=== PATIENT | female | born 2000 | race Hispanic/Latino ===

== ENCOUNTER 2022-01-28 22:59 | Inpatient (IN) | payer BC ==
[2022-01-29 00:16] LABS: Basophils # (Auto) 0.1 K/mm3 (0.0-0.1); Basophils % (Auto) 0.4 % (0.0-1.8); Eosinophils % (Auto) 0.1 % (0.0-4.3); Lymphocytes # (Auto) 2.7 K/mm3 (1.2-5.4); Lymphocytes % (Auto) 20.5 % (13.4-35.0); Mean Corpuscular HGB Conc 31 % (30-34); Mean Corpuscular Volume 86 fl (79-97); Monocytes # (Auto) 0.6 K/mm3 (0.0-0.8); Monocytes % (Auto) 4.4 % (0.0-7.3); Platelet Count 538 K/mm3 (140-440); Red Blood Count 5.22 M/mm3 (3.65-5.03); Red Cell Distribution Width 14.8 % (13.2-15.2)
[2022-01-29 00:27] LABS: Hematocrit 44.7 % (30.3-42.9); Hemoglobin 13.8 gm/dl (10.1-14.3)
[2022-01-29 00:29] LABS: Alanine Aminotransferase 12 units/L (7-56); Albumin 5.2 g/dL (3.9-5); BUN/Creatinine Ratio 15; Blood Urea Nitrogen 15 mg/dL (7-17); Calcium 9.4 mg/dL (8.4-10.2); Hemolysis Index 5
[2022-01-29 00:41] LABS: Mucus,Urine FEW /HPF; RBC,Urine < 1.0 /HPF (0.0-6.0); WBC,Urine < 1.0 /HPF (0.0-6.0)
[2022-01-29 00:44] LABS: Color,Urine Yellow (Yellow)
[2022-01-29] MEDS ORDERED: DEXTROSE 50% IN WATER (25GM) 50 ML SYRINGE IV PRN ×2 (01:07→17:45)
[2022-01-29] MEDS ORDERED: POTASSIUM CHLORIDE 10 MEQ 10 MEQ/100 ML BAG IV PRN (01:07)
[2022-01-29] MEDS ORDERED: SODIUM CHLORIDE 0.9% 1000 ML 1,000 ML IV ONE ×2 (01:07→01:08)
[2022-01-29] MEDS ORDERED: INSULIN REGULAR, HUMAN 100 UNITS/1 ML IV ONE (01:08)
[2022-01-29] MEDS ORDERED: ONDANSETRON 4 MG/2 ML INJ IV ONE (01:09)
--- NOTE | 2022-01-29 01:40 | Emergency Department Report ---
ED N/V/D HPI - General Chief complaint: Hyperglycemia Stated complaint: DIABETIC Time Seen by Provider: 01/29/22 01:06 Source: patient Mode of arrival: Ambulatory Limitations: No Limitations - History of Present Illness Initial comments: 21-year-old female with history of diabetes since age 3 with previous DKA presents to the hospital with nausea and vomiting since this morning. Patient has an insulin pump and believes it is functioning appropriately. Patient is visiting from [place] complaint: nausea, vomiting -: Gradual, days(s) (1) Description of Vomiting: food contents Associated Abdominal Pain: Yes Location: flank (right) Severity: mild Quality: stabbing Consistency: intermittent Improves with: none Worsens with: none Context: other (hyperglycemia) Associated Symptoms: nausea/vomiting. denies: chest pain, diaphoresis, fever/c hills, dysuria, shortness of breath - Related Data Allergies Allergy/AdvReac Type Severity Reaction Status Date / Time amoxicillin Allergy Unknown Verified 01/28/22 23:36 ED Review of Systems ROS: Stated complaint: DIABETIC Other details as noted in HPI Comment: All other systems reviewed and negative ED Past Medical Hx - Past Medical History Previous Medical History?: Yes Hx Diabetes: Yes (TYPE 1 DX AT AGE 3) - Surgical History Past Surgical History?: No - Social History Smoking Status: Never Smoker Substance Use Type: None ED Physical Exam - General Limitations: No Limitations - Other Other exam information: General: No acute distress Head: Atraumatic Eyes: normal appearance ENT: Dry mucous membrane Neck: Normal appearance, no midline tenderness Chest: Clear to auscultation bilaterally CV: Tachycardic regular rhythm Abdomen: Soft, normal bowel sounds, nontender, nondistended, no rebound or guarding Back: Normal inspection Extremity: Normal inspection, full range of motion Neuro: Alert O x 3, no facial asymmetry, speech clear, no gross motor sensory deficit Psych: Appropriate behavior Skin: No rash ED Course Vital Signs 01/28/22 23:35 Temperature 98.3 F Pulse Rate 121 H Respiratory 18 Rate Blood Pressure 124/61 O2 Sat by Pulse 98 Oximetry ED Medical Decision Making - Lab Data Result diagrams: 01/28/22 23:38 01/28/22 23:38 Lab Results 01/28/22 01/28/22 01/28/22 Range/Units 23:38 23:38 23:38 WBC 13.1 H (4.5-11.0) K/mm3 RBC 5.22 H (3.65-5.03) M/mm3 Hgb 13.8 (10.1-14.3) gm/dl Hct 44.7 H (30.3-42.9) % MCV 86 (79-97) fl MCH 26 L (28-32) pg MCHC 31 (30-34) % RDW 14.8 (13.2-15.2) % Plt Count 538 H (140-440) K/mm3 Lymph % (Auto) 20.5 (13.4-35.0) % [place] % (Auto) 4.4 (0.0-7.3) % Eos % (Auto) 0.1 (0.0-4.3) % Baso % (Auto) 0.4 (0.0-1.8) % Lymph # (Auto) 2.7 (1.2-5.4) K/mm3 [place] # (Auto) 0.6 (0.0-0.8) K/mm3 Eos # (Auto) 0.0 (0.0-0.4) K/mm3 Baso # (Auto) 0.1 (0.0-0.1) K/mm3 Seg Neutrophils % 74.6 H (40.0-70.0) % Seg Neutrophils # 9.8 H (1.8-7.7) K/mm3 Sodium 133 L (137-145) mmol/L Potassium 5.7 H (3.6-5.0) mmol/L Chloride 97.5 L (98-107) mmol/L Carbon Dioxide 6 L* (22-30) mmol/L Anion Gap 35 mmol/L BUN 15 (7-17) mg/dL Creatinine 1.0 (0.6-1.2) mg/dL Estimated GFR > 60 ml/min BUN/Creatinine Ratio 15 % Glucose 451 H (65-100) mg/dL Calcium 9.4 (8.4-10.2) mg/dL Total Bilirubin 0.30 (0.1-1.2) mg/dL AST 11 (5-40) units/L ALT 12 (7-56) units/L Alkaline Phosphatase 175 H (35-129) units/L Total Protein 8.4 H (6.3-8.2) g/dL Albumin 5.2 H (3.9-5) g/dL Albumin/Globulin Ratio 1.6 % Lipase 13 (13-60) units/L HCG, Qual Negative (Negative) Urine Color (Yellow) Urine Turbidity (Clear) Specific [place] (Man) (1.003-1.030) Ur Protein (Man) (Negative) mg/dL Ur Ketones (Man) (Negative) Ur Nitrite (Man) (Negative) Ur Reducing Substances Urine Bilirubin (Man) (Negative) Urine Ictotest Leukocyte Esterase (Man) (Negative) Urine WBC (Auto) (0.0-6.0) /HPF Urine RBC (Auto) (0.0-6.0) /HPF Urine RBC (Manual) (Negative) Urine Mucus /HPF 01/28/22 Range/Units Unknown WBC (4.5-11.0) K/mm3 RBC (3.65-5.03) M/mm3 Hgb (10.1-14.3) gm/dl Hct (30.3-42.9) % MCV (79-97) fl MCH (28-32) pg MCHC (30-34) % RDW (13.2-15.2) % Plt Count (140-440) K/mm3 Lymph % (Auto) (13.4-35.0) % [place] % (Auto) (0.0-7.3) % Eos % (Auto) (0.0-4.3) % Baso % (Auto) (0.0-1.8) % Lymph # (Auto) (1.2-5.4) K/mm3 [place] # (Auto) (0.0-0.8) K/mm3 Eos # (Auto) (0.0-0.4) K/mm3 Baso # (Auto) (0.0-0.1) K/mm3 Seg Neutrophils % (40.0-70.0) % Seg Neutrophils # (1.8-7.7) K/mm3 Sodium (137-145) mmol/L Potassium (3.6-5.0) mmol/L Chloride (98-107) mmol/L Carbon Dioxide (22-30) mmol/L Anion Gap mmol/L BUN (7-17) mg/dL Creatinine (0.6-1.2) mg/dL Estimated GFR ml/min BUN/Creatinine Ratio % Glucose (65-100) mg/dL Calcium (8.4-10.2) mg/dL Total Bilirubin (0.1-1.2) mg/dL AST (5-40) units/L ALT (7-56) units/L Alkaline Phosphatase (35-129) units/L Total Protein (6.3-8.2) g/dL Albumin (3.9-5) g/dL Albumin/Globulin Ratio % Lipase (13-60) units/L HCG, Qual (Negative) Urine Color Yellow (Yellow) Urine Turbidity Slightly cloudy (Clear) Specific [place] (Man) 1.030 (1.003-1.030) Ur Protein (Man) 1+ (Negative) mg/dL Ur Ketones (Man) 3+ (Negative) Ur Nitrite (Man) Negative (Negative) Ur Reducing Substances Not Reportable Urine Bilirubin (Man) Negative (Negative) Urine Ictotest Not Reportable Leukocyte Esterase (Man) Negative (Negative) Urine WBC (Auto) < 1.0 (0.0-6.0) /HPF Urine RBC (Auto) < 1.0 (0.0-6.0) /HPF Urine RBC (Manual) Negative (Negative) Urine Mucus Few /HPF - EKG Data -: EKG Interpreted by [facility] EKG shows normal: sinus rhythm, ST-T waves (no stemi) Rate: tachycardia - Medical Decision Making 21-year-old female with nausea, vomiting, hyperglycemia has labs consistent with DKA. IV fluids, IV bolus of insulin and insulin drip, and Zofran ordered. Patient denies needing pain medication at this time. Case walter with hospitalist for admission Critical Care Time: Yes Critical care time in (mins) excluding proc time.: 35 Critical care attestation.: If time is entered above; I have spent that time in minutes in the direct care of this critically ill patient, excluding procedure time. Critical Care Time: 35 minutes critical care time. Patient required initiation of IV insulin drip with titration and monitoring of labs and glucose levels. Patient will require ICU admission ED Disposition Clinical Impression: DKA (diabetic ketoacidosis), Nausea & vomiting Disposition: ADMITTED INPATIENT Is pt being admited?: Yes Condition: Stable Instructions: Diabetic Ketoacidosis (ED) Time of Disposition: 01:46 (Dr Subramanian)
[2022-01-29] MEDS: INSULIN REGULAR, HUMAN 100 UNITS in SODIUM CHLORIDE 0.9% 99 ML IV SCH ×2 (01:44→02:55)
[2022-01-29] MEDS ORDERED: ONDANSETRON 4 MG/2 ML INJ IV PRN (01:56)
[2022-01-29] MEDS ORDERED: MAGNESIUM HYDROXIDE (MOM) ORAL LIQD UDC PO PRN (01:56)
[2022-01-29] MEDS ORDERED: MORPHINE 2 MG/1 ML INJ IV PRN (01:56)
[2022-01-29] MEDS ORDERED: ACETAMINOPHEN 325 MG TAB PO PRN (01:56)
[2022-01-29] MEDS ORDERED: MORPHINE 4 MG/1 ML INJ IV PRN (01:56)
[2022-01-29] MEDS ORDERED: D5W/0.45% NACL/KCL 20 MEQ 20 MEQ/1,000 ML BAG IV SCH (02:00)
[2022-01-29] MEDS ORDERED: INSULIN REGULAR, HUMAN 100 UNITS in SODIUM CHLORIDE 0.9% 99 ML IV SCH (02:00)
[2022-01-29] MEDS ORDERED: SODIUM CHLORIDE 0.9% 1000 ML 1,000 ML IV SCH (02:00)
--- NOTE | 2022-01-29 02:06 | History and Physical Report ---
History of Present Illness Date of examination: 01/29/22 Date of admission: 01/29/2022 Chief complaint: Nausea and Vomiting History of present illness: 21-year-old female with known history of type 1 diabetes mellitus presenting to the emergency room today complaining of nausea and vomiting. She denies any diarrhea, denies any fever or chills, no chest pain or shortness of breath. Patient is on insulin pump for diabetes mellitus. She is also visiting from [place]. She denies any sick contacts. Patient indicates that she has had similar episodes in the past and was diagnosed with DKA when insulin pump was malfunctioning. Blood glucose of 451. Work-up in the emergency room today, lab reveals CO2 of 6 anion gap of 35, venous pH of 7.059, urinalysis reveals 3+ ketones. Patient is being admitted in DKA. Past History Past Medical History: diabetes Past Surgical History: No surgical history Social history: no significant social history Family history: no significant family history Medications and Allergies Allergies Allergy/AdvReac Type Severity Reaction Status Date / Time amoxicillin Allergy Unknown Verified 01/28/22 23:36 Active Meds: Active Medications Dextrose (Dextrose 50% In Water (25gm) 50 Ml Syringe) 0 ml IV Q30MIN PRN; Protocol PRN Reason: Hypoglycemia Insulin Human Regular 100 (units/ Sodium Chloride) 100 mls @ 1 mls/hr IV TITR MARIANN; Protocol Last Admin: 01/29/22 01:44 Dose: 8 units/hr, 8 mls/hr Sodium Chloride (Nacl 0.9% 1000 Ml) 1,000 mls @ 999 mls/hr IV BOLUS ONE Stop: 01/29/22 02:07 Last Admin: 01/29/22 01:41 Dose: 999 mls/hr Potassium Chloride/Dextrose/Sod Cl (D5w/0.45% Nacl/Kcl 20 Meq) 20 meq in 1,000 mls @ 125 mls/hr IV DIRECT MARIANN Potassium Chloride (Kcl 10meq/100ml) 10 meq in 100 mls @ 100 mls/hr IV Q1H PRN PRN Reason: LOW Potassium Levels Sodium Chloride (Nacl 0.9% 1000 Ml) 1,000 mls @ 999 mls/hr IV BOLUS ONE Stop: 01/29/22 02:08 Last Admin: 01/29/22 01:41 Dose: 999 mls/hr Review of Systems Constitutional: no fever, no chills Ears, nose, mouth and throat: no nasal congestion, no sore throat Cardiovascular: no chest pain, no palpitations Respiratory: no cough, no shortness of breath Gastrointestinal: nausea, vomiting, no abdominal pain, no diarrhea Genitourinary Female: no pelvic pain, no flank pain, no dysuria, no hematuria Musculoskeletal: no neck pain, no low back pain Integumentary: no rash, no pruritis Neurological: no headaches, no confusion Endocrine: no polyphagia, no polydipsia, no polyuria, no nocturia Exam - Constitutional Vitals: Temp Pulse Resp BP Pulse Ox 98.3 F 121 H 18 124/61 98 01/28/22 23:35 01/28/22 23:35 01/28/22 23:35 01/28/22 23:35 01/28/22 23:35 General appearance: Present: no acute distress, well-nourished - EENT Eyes: Present: PERRL, EOM intact. Absent: scleral icterus ENT: hearing intact, clear oral mucosa, dentition normal - Neck Neck: Present: supple, normal ROM - Respiratory Respiratory effort: normal Respiratory: bilateral: CTA - Cardiovascular Rhythm: regular Heart Sounds: Present: S1 & S2. Absent: gallop, systolic murmur, diastolic murmur, rub, click - Extremities Extremities: no ischemia, pulses intact, pulses symmetrical, No edema, normal temperature, normal color, Full ROM Peripheral Pulses: within normal limits - Abdominal General gastrointestinal: Present: soft, non-tender, non-distended, normal bowel sounds. Absent: mass - Integumentary Integumentary: Present: clear, warm, dry, normal turgor. Absent: rash - Musculoskeletal Musculoskeletal: strength equal bilaterally - Psychiatric Psychiatric: appropriate mood/affect, intact judgment & insight, memory intact, cooperative - Neurologic Neurologic: CNII-XII intact, no focal deficits, moves all extremities Results - Labs CBC & Chem 7: 01/28/22 23:38 01/29/22 01:28 Labs: Abnormal lab results 01/28/22 01/28/22 01/29/22 Range/Units 23:38 23:38 01:36 WBC 13.1 H (4.5-11.0) K/mm3 RBC 5.22 H (3.65-5.03) M/mm3 Hct 44.7 H (30.3-42.9) % MCH 26 L (28-32) pg Plt Count 538 H (140-440) K/mm3 Seg Neutrophils % 74.6 H (40.0-70.0) % Seg Neutrophils # 9.8 H (1.8-7.7) K/mm3 Sodium 133 L (137-145) mmol/L Potassium 5.7 H (3.6-5.0) mmol/L Chloride 97.5 L (98-107) mmol/L Carbon Dioxide 6 L* (22-30) mmol/L Glucose 451 H (65-100) mg/dL POC Glucose 539 H (70-105) mg/dL Alkaline Phosphatase 175 H (35-129) units/L Total Protein 8.4 H (6.3-8.2) g/dL Albumin 5.2 H (3.9-5) g/dL Assessment and Plan Assessment: 1.Diabetic Ketoacidosis 2.Nausea and Vomiting Plan: 1.Admitted and placed on Insulin drip and IV fluid. We will monitor blood glucose closely. 2.Placed on antiemetic DVT Prophylaxis: SQ Heparin Code Status: Full Code
[2022-01-29 02:16] LABS: BUN/Creatinine Ratio 15; Blood Urea Nitrogen 17 mg/dL (7-17); Calcium 9.2 mg/dL (8.4-10.2); Hemolysis Index 8
[2022-01-29 02:17] LABS: Alanine Aminotransferase 12 units/L (7-56); Albumin 4.9 g/dL (3.9-5)
[2022-01-29 02:19] LABS: Bilirubin,Direct < 0.2 mg/dL (0-0.2)
[2022-01-29] MEDS ORDERED: SODIUM BICARB 8.4% 50 MEQ/50 ML SYRINGE IV ONE (04:54)
[2022-01-29 04:57] LABS: BUN/Creatinine Ratio 18; Blood Urea Nitrogen 14 mg/dL (7-17); Calcium 8.6 mg/dL (8.4-10.2); Hemolysis Index 11
[2022-01-29] MEDS: HEPARIN 5,000 UNIT/1 ML VIAL SUB-Q SCH ×3 (06:04→21:39)
[2022-01-29 07:12] LABS: BUN/Creatinine Ratio 16; Blood Urea Nitrogen 13 mg/dL (7-17); Calcium 9.1 mg/dL (8.4-10.2); Hemolysis Index 10
[2022-01-29] MEDS ORDERED: SODIUM CHLORIDE 0.9% 1000 ML 2,000 ML IV ONE ×2 (08:00→12:30)
[2022-01-29] MEDS ORDERED: SODIUM BICARB 8.4% 50 MEQ/50 ML SYRINGE IV SCH (08:00)
[2022-01-29] MEDS ORDERED: FAMOTIDINE 20 MG/2 ML INJ IV SCH (10:00)
--- NOTE | 2022-01-29 10:39 | Progress Note ---
<DEE STOLL - Last Filed: 01/29/22 18:42> Assessment and Plan Assessment and plan: This is a 21-year-old female with known past medical history of type 1 DM admitted for DKA Hospital Course to Date: 01/29: Remains in metabolic acidosis this am. Additional IVF boluses ordered. Continue insulin gtt and IVF resuscitation per DKA protocol. Monitor and replace electrolytes as needed. Monitor anion gap, serial Labs ordered. Thorough discussion with patient and patient's mother at the bedside. Patient's diagnosis, current condition, and plan of care were thoroughly discussed. According to patient's mother, patient is down here for labor day weekend from [place]. Patient does have a functioning insulin pump, however, her dexacom ran out of battery and she did not check her BG to manually make adjustment to her pump. 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 Will transition to subQ insulin once anion gap and acidosis resolved. Patient to go back to her home insulin regimen via the pump at discharge. Assessment and Plan #Diabetic Ketoacidosis(DKA) #Type 1 Diabetes Mellitus #Anion Gap Metabolic Acidosis - Visiting from [place] - Presented withGB 451, CO2 of 6 anion gap of 35, venous pH of 7.059, urinalysis reveals 3+ ketones - On DKA protocol - Patient does have a functioning insulin pump, however, her dexacom ran out of battery and she did not check her BG to manually make adjustment to her pump. - remains in metabolic acidosis this am, CO2 is 8, and Anion gap is still in the 30 - Additional IVF bolus administered - Continue insulin gtt and IVF resuscitation per protocol - Monitor and replace electrolytes as needed - Monitor anion gap, serial Labs ordered - Will transition to subQ insulin once anion gap and acidosis resolved. - Patient to go back to her home insulin regimen with insulin pump at discharge. - Follow with PCP and school plant consultant in [place] after discharge #Nausea and Vomiting-resolved - Secondary to above - on DKA protocol - N/V resolved - Continue PRN antiemetic for N/V #Hyperkalemia-improved #Hyponatremia-improved #Volume Depletion/Dehydration - most likely due to DKA - continue insulin gtt and IVF resuscitation per DKA protocol - Strict intake and output - Monitor and replace electrolytes as needed - Serial Labs ordered #Leukocytosis - Most likely reactive to aboved - Patient is Afebrile, VSS - Continue DKA protocol - Trend CBC #GI/DVT Prophylaxis - PPI- Pepcid - Heparin SubQ - SCDs to bilateral lower extremities while in bed #Advance Care Planning - Disease education data, care plan, diagnoses, and prognosis were discussed with the patient and her mother at the bedside. Patient is a FULL code. They acknowledged understanding and agreed with current care plan. The high probability of a clinically significant, sudden or life threatening deterioration of the [multiple] system(s) required my full and direct attention, intervention and personal management. The aggregate critical care time was [60] minutes. This time is in addition to time spent performing reported procedures but includes the following: [x] Data Review and interpretation [x] Patient assessment and monitoring of vital signs [x] Documentation [x] Medication orders and management Disposition Plan: ICU Total Time Spent with Patient (Minutes): 60 History Interval history: Patient seen and examined at the bedside. Fully AAO, on RA, denied any pain nor any discomfort, n/v resolved. On DKA protocol, VSS. Hospitalist Physical - Constitutional Vitals: Temp Pulse Resp BP Pulse Ox 98.1 F 82 22 109/69 99 01/29/22 07:11 01/29/22 08:09 01/29/22 08:09 01/29/22 08:00 01/29/22 08:09 General appearance: Present: no acute distress, well-nourished - EENT Eyes: Present: PERRL, EOM intact ENT: hearing intact, clear oral mucosa - Neck Neck: Present: normal ROM - Respiratory Respiratory effort: normal Respiratory: bilateral: CTA - Cardiovascular Rhythm: regular Heart Sounds: Present: S1 & S2 - Extremities Extremities: no ischemia, pulses intact, pulses symmetrical Peripheral Pulses: within normal limits - Abdominal General gastrointestinal: soft, non-distended, normal bowel sounds - Integumentary Integumentary: Present: clear, warm, dry - Psychiatric Psychiatric: appropriate mood/affect, cooperative - Neurologic Neurologic: CNII-XII intact, moves all extremities - Allied Health Allied health notes reviewed: nursing Results - Labs CBC & Chem 7: 01/28/22 23:38 01/29/22 16:25 Labs: Laboratory Last Values WBC 13.1 K/mm3 (4.5-11.0) H 01/28/22 23:38 RBC 5.22 M/mm3 (3.65-5.03) H 01/28/22 23:38 Hgb 13.8 gm/dl (10.1-14.3) 01/28/22 23:38 Hct 44.7 % (30.3-42.9) H 01/28/22 23:38 MCV 86 fl (79-97) 01/28/22 23:38 MCH 26 pg (28-32) L 01/28/22 23:38 MCHC 31 % (30-34) 01/28/22 23:38 RDW 14.8 % (13.2-15.2) 01/28/22 23:38 Plt Count 538 K/mm3 (140-440) H 01/28/22 23:38 Lymph % (Auto) 20.5 % (13.4-35.0) 01/28/22 23:38 Iroquois % (Auto) 4.4 % (0.0-7.3) 01/28/22 23:38 Eos % (Auto) 0.1 % (0.0-4.3) 01/28/22 23:38 Baso % (Auto) 0.4 % (0.0-1.8) 01/28/22 23:38 Lymph # (Auto) 2.7 K/mm3 (1.2-5.4) 01/28/22 23:38 [place] # (Auto) 0.6 K/mm3 (0.0-0.8) 01/28/22 23:38 Eos # (Auto) 0.0 K/mm3 (0.0-0.4) 01/28/22 23:38 Baso # (Auto) 0.1 K/mm3 (0.0-0.1) 01/28/22 23:38 Seg Neutrophils % 74.6 % (40.0-70.0) H 01/28/22 23:38 Seg Neutrophils # 9.8 K/mm3 (1.8-7.7) H 01/28/22 23:38 VBG pH 7.059 (7.320-7.420) L* 01/29/22 01:28 Sodium 139 mmol/L (137-145) 01/29/22 06:43 Potassium 4.5 mmol/L (3.6-5.0) 01/29/22 06:43 Chloride 104.6 mmol/L (98-107) 01/29/22 06:43 Carbon Dioxide 8 mmol/L (22-30) L* 01/29/22 06:43 Anion Gap 31 mmol/L 01/29/22 06:43 BUN 13 mg/dL (7-17) 01/29/22 06:43 Creatinine 0.8 mg/dL (0.6-1.2) 01/29/22 06:43 Estimated GFR > 60 ml/min 01/29/22 06:43 BUN/Creatinine Ratio 16 % 01/29/22 06:43 Glucose 138 mg/dL (65-100) H 01/29/22 06:43 POC Glucose 158 mg/dL (70-105) H 01/29/22 07:55 Calcium 9.1 mg/dL (8.4-10.2) 01/29/22 06:43 Phosphorus 3.00 mg/dL (2.5-4.5) D 01/29/22 04:02 Magnesium 1.90 mg/dL (1.7-2.3) 01/29/22 04:02 Total Bilirubin 0.30 mg/dL (0.1-1.2) 01/29/22 01:28 Direct Bilirubin < 0.2 mg/dL (0-0.2) 01/29/22 01:28 Indirect Bilirubin 0.1 mg/dL 01/29/22 01:28 AST 10 units/L (5-40) 01/29/22 01:28 ALT 12 units/L (7-56) 01/29/22 01:28 Alkaline Phosphatase 181 units/L (35-129) H 01/29/22 01:28 Total Protein 8.2 g/dL (6.3-8.2) 01/29/22 01:28 Albumin 4.9 g/dL (3.9-5) 01/29/22 01:28 Albumin/Globulin Ratio 1.5 % 01/29/22 01:28 Lipase 12 units/L (13-60) L 01/29/22 01:28 HCG, Qual Negative (Negative) 01/28/22 23:38 Urine Color Yellow (Yellow) 01/28/22 Unknown Urine Turbidity Slightly cloudy (Clear) 01/28/22 Unknown Specific Shields (Man) 1.030 (1.003-1.030) 01/28/22 Unknown Ur Protein (Man) 1+ mg/dL (Negative) 01/28/22 Unknown Ur Ketones (Man) 3+ (Negative) 01/28/22 Unknown Ur Nitrite (Man) Negative (Negative) 01/28/22 Unknown Ur Reducing Substances Not Reportable 01/28/22 Unknown Urine Bilirubin (Man) Negative (Negative) 01/28/22 Unknown Urine Ictotest Not Reportable 01/28/22 Unknown Leukocyte Esterase (Man) Negative (Negative) 01/28/22 Unknown Urine WBC (Auto) < 1.0 /HPF (0.0-6.0) 01/28/22 Unknown Urine RBC (Auto) < 1.0 /HPF (0.0-6.0) 01/28/22 Unknown Urine RBC (Manual) Negative (Negative) 01/28/22 Unknown Urine Mucus Few /HPF 01/28/22 Unknown Active Medications - Current Medications Current Medications: Generic Name Dose Route Start Last Admin Trade Name Freq PRN Reason Stop Dose Admin Acetaminophen 650 mg 01/29/22 01:56 01/29/22 06:08 Acetaminophen 325 Mg Tab PO 650 mg Q6H PRN Administration Pain MILD(1-3)/Fever >100.5/BILLS Dextrose 0 ml 01/29/22 01:07 Dextrose 50% In Water (25gm) 50 Ml Syringe IV Q30MIN PRN Hypoglycemia Protocol Famotidine 20 mg 01/29/22 10:00 01/29/22 09:45 Famotidine 20 Mg/2 Ml Inj IV 01/30/22 09:59 20 mg QDAY MARIANN Administration Famotidine 20 mg 01/30/22 10:00 Famotidine 20 Mg Tab PO QDAY MARIANN Heparin Sodium (Porcine) 5,000 unit 01/29/22 06:00 01/29/22 06:04 Heparin 5,000 Unit/1 Ml Vial SUB-Q 5,000 unit Q8HR MARIANN Administration Insulin Human Regular 100 100 mls @ 1 mls/hr 01/29/22 02:00 01/29/22 08:36 units/ Sodium Chloride IV 4 units/hr TITR MARIANN 4 mls/hr Titration Protocol 1 UNITS/HR Potassium Chloride/Dextrose/Sod Cl 20 meq in 1,000 mls @ 125 mls/hr 01/29/22 02:00 01/29/22 06:25 D5w/0.45% Nacl/Kcl 20 Meq IV 125 mls/hr DIRECT MARIANN Administration Sodium Chloride 1,000 mls @ 150 mls/hr 01/29/22 02:00 Nacl 0.9% 1000 Ml IV DIRECT MARIANN Magnesium Hydroxide 30 ml 01/29/22 01:56 Magnesium Hydroxide (Mom) Oral Liqd Udc PO Q4H PRN Constipation Morphine Sulfate 2 mg 01/29/22 01:56 Morphine 2 Mg/1 Ml Inj IV Q4H PRN Pain, Moderate (4-6) Ondansetron HCl 4 mg 01/29/22 01:56 Ondansetron 4 Mg/2 Ml Inj IV Q8H PRN Nausea And Vomiting Sodium Bicarbonate 150 meq 01/29/22 08:00 Sodium Bicarb 8.4% 50 Meq/50 Ml Syringe IV 01/29/22 12:00 ONCE@0800 MARIANN Sodium Chloride 10 ml 01/29/22 10:00 01/29/22 09:45 Sodium Chloride 0.9% 10 Ml Flush Syringe IV 10 ml BID MARIANN Administration Sodium Chloride 10 ml 01/29/22 01:56 Sodium Chloride 0.9% 10 Ml Flush Syringe IV PRN PRN LINE FLUSH <PIO PIZANO - Last Filed: 01/30/22 07:25> Assessment and Plan Assessment and plan: I saw and evaluated the patient. I agree with the findings and the plan of care as documented in the Nurse Practitioner's~note, with the following corrections and additions. Hospitalist Physical - Constitutional Vitals: Temp Pulse Resp BP Pulse Ox 99.1 F 84 13 88/39 98 01/30/22 07:01 01/30/22 07:00 01/30/22 07:00 01/30/22 07:00 01/30/22 07:00 Results - Labs CBC & Chem 7: 01/30/22 03:40 01/30/22 03:40 Labs: Laboratory Last Values WBC 7.0 K/mm3 (4.5-11.0) 01/30/22 03:40 RBC 3.75 M/mm3 (3.65-5.03) 01/30/22 03:40 Hgb 10.2 gm/dl (10.1-14.3) D 01/30/22 03:40 Hct 30.6 % (30.3-42.9) D 01/30/22 03:40 MCV 82 fl (79-97) 01/30/22 03:40 MCH 27 pg (28-32) L 01/30/22 03:40 MCHC 33 % (30-34) 01/30/22 03:40 RDW 14.8 % (13.2-15.2) 01/30/22 03:40 Plt Count 254 K/mm3 (140-440) 01/30/22 03:40 Lymph % (Auto) 39.5 % (13.4-35.0) H 01/30/22 03:40 [place]ois % (Auto) 5.5 % (0.0-7.3) 01/30/22 03:40 Eos % (Auto) 0.9 % (0.0-4.3) 01/30/22 03:40 Baso % (Auto) 0.4 % (0.0-1.8) 01/30/22 03:40 Lymph # (Auto) 2.8 K/mm3 (1.2-5.4) 01/30/22 03:40 [place] # (Auto) 0.4 K/mm3 (0.0-0.8) 01/30/22 03:40 Eos # (Auto) 0.1 K/mm3 (0.0-0.4) 01/30/22 03:40 Baso # (Auto) 0.0 K/mm3 (0.0-0.1) 01/30/22 03:40 Seg Neutrophils % 53.7 % (40.0-70.0) 01/30/22 03:40 Seg Neutrophils # 3.8 K/mm3 (1.8-7.7) 01/30/22 03:40 VBG pH 7.059 (7.320-7.420) L* 01/29/22 01:28 Sodium 138 mmol/L (137-145) 01/30/22 03:40 Potassium 3.4 mmol/L (3.6-5.0) L 01/30/22 03:40 Chloride 106.5 mmol/L (98-107) 01/30/22 03:40 Carbon Dioxide 17 mmol/L (22-30) L 01/30/22 03:40 Anion Gap 18 mmol/L 01/30/22 03:40 BUN 6 mg/dL (7-17) L 01/30/22 03:40 Creatinine 0.5 mg/dL (0.6-1.2) L 01/30/22 03:40 Estimated GFR > 60 ml/min 01/30/22 03:40 BUN/Creatinine Ratio 12 % 01/30/22 03:40 Glucose 198 mg/dL (65-100) H 01/30/22 03:40 POC Glucose 277 mg/dL (70-105) H 01/29/22 21:45 Calcium 7.9 mg/dL (8.4-10.2) L 01/30/22 03:40 Phosphorus 2.40 mg/dL (2.5-4.5) L D 01/30/22 03:40 Magnesium 2.20 mg/dL (1.7-2.3) 01/30/22 03:40 Total Bilirubin < 0.20 mg/dL (0.1-1.2) 01/30/22 03:40 Direct Bilirubin < 0.2 mg/dL (0-0.2) 01/29/22 01:28 Indirect Bilirubin 0.1 mg/dL 01/29/22 01:28 AST 9 units/L (5-40) 01/30/22 03:40 ALT 7 units/L (7-56) 01/30/22 03:40 Alkaline Phosphatase 99 units/L (35-129) 01/30/22 03:40 Total Protein 5.4 g/dL (6.3-8.2) L D 01/30/22 03:40 Albumin 3.3 g/dL (3.9-5) L 01/30/22 03:40 Albumin/Globulin Ratio 1.6 % 01/30/22 03:40 Lipase 12 units/L (13-60) L 01/29/22 01:28 HCG, Qual Negative (Negative) 01/28/22 23:38 Urine Color Yellow (Yellow) 01/28/22 Unknown Urine Turbidity Slightly cloudy (Clear) 01/28/22 Unknown Specific Shields (Man) 1.030 (1.003-1.030) 01/28/22 Unknown Ur Protein (Man) 1+ mg/dL (Negative) 01/28/22 Unknown Ur Ketones (Man) 3+ (Negative) 01/28/22 Unknown Ur Nitrite (Man) Negative (Negative) 01/28/22 Unknown Ur Reducing Substances Not Reportable 01/28/22 Unknown Urine Bilirubin (Man) Negative (Negative) 01/28/22 Unknown Urine Ictotest Not Reportable 01/28/22 Unknown Leukocyte Esterase (Man) Negative (Negative) 01/28/22 Unknown Urine WBC (Auto) < 1.0 /HPF (0.0-6.0) 01/28/22 Unknown Urine RBC (Auto) < 1.0 /HPF (0.0-6.0) 01/28/22 Unknown Urine RBC (Manual) Negative (Negative) 01/28/22 Unknown Urine Mucus Few /HPF 01/28/22 Unknown Active Medications - Current Medications Current Medications: Generic Name Dose Route Start Last Admin Trade Name Freq PRN Reason Stop Dose Admin Acetaminophen 650 mg 01/29/22 01:56 01/29/22 06:08 Acetaminophen 325 Mg Tab PO 650 mg Q6H PRN Administration Pain MILD(1-3)/Fever >100.5/BILLS Dextrose 0 ml 01/29/22 01:07 Dextrose 50% In Water (25gm) 50 Ml Syringe IV Q30MIN PRN Hypoglycemia Protocol Dextrose 50 ml 01/29/22 17:45 Dextrose 50% In Water (25gm) 50 Ml Syringe IV Q30MIN PRN Hypoglycemia Protocol Famotidine 20 mg 01/29/22 10:00 01/29/22 09:45 Famotidine 20 Mg/2 Ml Inj IV 01/30/22 09:59 20 mg QDAY MARIANN Administration Famotidine 20 mg 01/30/22 10:00 Famotidine 20 Mg Tab PO QDAY MARIANN Heparin Sodium (Porcine) 5,000 unit 01/29/22 06:00 01/30/22 05:42 Heparin 5,000 Unit/1 Ml Vial SUB-Q 5,000 unit Q8HR MARIANN Administration Potassium Phosphate 30 mmol/ 510 mls @ 83 mls/hr 01/30/22 05:23 01/30/22 05:42 Sodium Chloride IV 01/30/22 11:31 83 mls/hr ONCE ONE Administration Insulin Glargine 15 units 01/29/22 20:00 01/29/22 19:00 Insulin Glargine 100 Units/Ml SUB-Q Not Given 1800 [facility] Insulin Human Regular 0 units 01/29/22 20:00 01/30/22 06:10 Insulin Regular, Human 100 Units/1 Ml SUB-Q 2 units Q4HR MARIANN Administration Protocol Magnesium Hydroxide 30 ml 01/29/22 01:56 Magnesium Hydroxide (Mom) Oral Liqd Udc PO Q4H PRN Constipation Morphine Sulfate 2 mg 01/29/22 01:56 Morphine 2 Mg/1 Ml Inj IV Q4H PRN Pain, Moderate (4-6) Ondansetron HCl 4 mg 01/29/22 01:56 Ondansetron 4 Mg/2 Ml Inj IV Q8H PRN Nausea And Vomiting Potassium Chloride 40 meq 01/29/22 18:00 Potassium Chloride 20 Meq Packet PO ONCE MARIANN Sodium Chloride 10 ml 01/29/22 10:00 01/29/22 21:48 Sodium Chloride 0.9% 10 Ml Flush Syringe IV 10 ml BID MARIANN Administration Sodium Chloride 10 ml 01/29/22 01:56 Sodium Chloride 0.9% 10 Ml Flush Syringe IV PRN PRN LINE FLUSH Nutrition/Malnutrition Assess - Dietary Evaluation Nutrition/Malnutrition Findings: Nutrition Notes Start: 01/29/22 13:03 Freq: Status: Active Protocol: Document 01/29/22 13:03 LOKI (Rec: 01/29/22 13:13 LOKI [email or web address]) Nutrition Notes Need for Assessment generated from: MD Order,Education Initial or Follow up Brief Note Current Diagnosis Diabetes Other Pertinent Diagnosis Hyperglycemia, DKA, N/V, Insulin pump malfunction. Current Diet NPO (since 01/29 01:57). Height 5 ft 2 in Weight 61.61 kg Ribera Body Weight (kg) 50.00 BMI 24.8 Intake Prior to Admission Good Weight change and time frame Pt denies having loss body weight [employer]. Weight Status Appropriate Subjective/Other Information RD consult for nutrition education assessment. Pt is on NPO. Pt is on Room Air, O2 saturation @ 98%, according to Physical Assessment History notes. Pt complains of having N/V, according to Physical Assessment History notes. Pt has T1DM and states that in the past when her insulin pump malfunctioned, had experienced similar symptoms and was diagnosed with DKA; Pt not subject to nutrition education. Percent of energy/protein needs met: Pt is on NPO. Nutrition Intervention Follow-Up By: 02/03/22 Additional Comments When pertinent, start monitoring food tolerance, %PO intake of meals, dietary supplements, and BM.
[2022-01-29 12:00] LABS: Blood Urea Nitrogen 9 mg/dL (7-17); Calcium 7.3 mg/dL (8.4-10.2); Hemolysis Index 205
[2022-01-29 12:05] LABS: BUN/Creatinine Ratio 13
[2022-01-29] MEDS ORDERED: D5W/0.45% NACL 1,000 ML IV SCH (13:00)
--- NOTE | 2022-01-29 13:37 | Consultation ---
History of Present Illness Consult date: 01/29/22 Requesting physician: DIAN YI Reason for consult: other (DKA) History of present illness: PULMONARY/CCM CONSULT NOTE (Full dictation # [id number]) Please see dictated notes for full details Past History Past Medical History: diabetes Past Surgical History: No surgical history Social history: no significant social history Family history: no significant family history Medications and Allergies Allergies Allergy/AdvReac Type Severity Reaction Status Date / Time amoxicillin Allergy Unknown Verified 01/28/22 23:36 Active Meds: Active Medications Acetaminophen (Acetaminophen 325 Mg Tab) 650 mg PO Q6H PRN PRN Reason: Pain MILD(1-3)/Fever >100.5/BILLS Last Admin: 01/29/22 06:08 Dose: 650 mg Dextrose (Dextrose 50% In Water (25gm) 50 Ml Syringe) 0 ml IV Q30MIN PRN; Protocol PRN Reason: Hypoglycemia Famotidine (Famotidine 20 Mg/2 Ml Inj) 20 mg IV QDAY MARIANN Stop: 01/30/22 09:59 Last Admin: 01/29/22 09:45 Dose: 20 mg Famotidine (Famotidine 20 Mg Tab) 20 mg PO QDAY MARIANN Heparin Sodium (Porcine) (Heparin 5,000 Unit/1 Ml Vial) 5,000 unit SUB-Q Q8HR MARIANN Last Admin: 01/29/22 06:04 Dose: 5,000 unit Insulin Human Regular 100 (units/ Sodium Chloride) 100 mls @ 1 mls/hr IV TITR MARIANN; Protocol Last Titration: 01/29/22 12:27 Dose: 1 units/hr, 1 mls/hr Sodium Chloride (Nacl 0.9% 1000 Ml) 1,000 mls @ 150 mls/hr IV DIRECT MAIRANN Sodium Chloride (Nacl 0.9% 1000 Ml) 2,000 mls @ 999 mls/hr IV BOLUS ONE Stop: 01/29/22 14:30 Last Admin: 01/29/22 12:25 Dose: 999 mls/hr Dextrose/Sodium Chloride (D5/0.45ns) 1,000 mls @ 125 mls/hr IV DIRECT MARIANN Last Admin: 01/29/22 12:24 Dose: 125 mls/hr Magnesium Hydroxide (Magnesium Hydroxide (Mom) Oral Liqd Udc) 30 ml PO Q4H PRN PRN Reason: Constipation Morphine Sulfate (Morphine 2 Mg/1 Ml Inj) 2 mg IV Q4H PRN PRN Reason: Pain, Moderate (4-6) Ondansetron HCl (Ondansetron 4 Mg/2 Ml Inj) 4 mg IV Q8H PRN PRN Reason: Nausea And Vomiting Sodium Chloride (Sodium Chloride 0.9% 10 Ml Flush Syringe) 10 ml IV BID MARIANN Last Admin: 01/29/22 09:45 Dose: 10 ml Sodium Chloride (Sodium Chloride 0.9% 10 Ml Flush Syringe) 10 ml IV PRN PRN PRN Reason: LINE FLUSH Physical Examination Vital signs: Vital Signs Temp Pulse Resp BP Pulse Ox 98.3 F 121 H 18 124/61 98 01/28/22 23:35 01/28/22 23:35 01/28/22 23:35 01/28/22 23:35 01/28/22 23:35 Results - Laboratory Findings CBC and BMP: 01/30/22 03:40 01/30/22 03:40 Abnormal lab findings: Abnormal Labs 01/28/22 01/28/22 01/29/22 23:38 23:38 01:28 WBC 13.1 H RBC 5.22 H Hct 44.7 H MCH 26 L Plt Count 538 H Seg Neutrophils % 74.6 H Seg Neutrophils # 9.8 H VBG pH Sodium 133 L Potassium 5.7 H Chloride 97.5 L Carbon Dioxide 6 L* Glucose 451 H POC Glucose Calcium Phosphorus 5.20 H Alkaline Phosphatase 175 H Total Protein 8.4 H Albumin 5.2 H Lipase 01/29/22 01/29/22 01/29/22 01:28 01:28 01:28 WBC RBC Hct MCH Plt Count Seg Neutrophils % Seg Neutrophils # VBG pH 7.059 L* Sodium 131 L Potassium 6.1 H* Chloride 95.9 L Carbon Dioxide 7 L* Glucose 567 H* POC Glucose Calcium Phosphorus Alkaline Phosphatase 181 H Total Protein Albumin Lipase 12 L 01/29/22 01/29/22 01/29/22 01:36 02:51 04:02 WBC RBC Hct MCH Plt Count Seg Neutrophils % Seg Neutrophils # VBG pH Sodium Potassium Chloride 108.3 H Carbon Dioxide 4 L* Glucose 198 H POC Glucose 539 H 292 H Calcium Phosphorus Alkaline Phosphatase Total Protein Albumin Lipase 01/29/22 01/29/22 01/29/22 04:02 04:59 06:01 WBC RBC Hct MCH Plt Count Seg Neutrophils % Seg Neutrophils # VBG pH Sodium Potassium Chloride Carbon Dioxide Glucose POC Glucose 152 H 123 H 123 H Calcium Phosphorus Alkaline Phosphatase Total Protein Albumin Lipase 01/29/22 01/29/22 01/29/22 06:43 07:55 11:10 WBC RBC Hct MCH Plt Count Seg Neutrophils % Seg Neutrophils # VBG pH Sodium Potassium 5.2 H Chloride 113.8 H Carbon Dioxide 8 L* 13 L Glucose 138 H 121 H POC Glucose 158 H Calcium 7.3 L D Phosphorus 2.30 L D Alkaline Phosphatase Total Protein Albumin Lipase
[2022-01-29 17:12] LABS: Blood Urea Nitrogen 6 mg/dL (7-17); Hemolysis Index 69
[2022-01-29 17:23] LABS: BUN/Creatinine Ratio 10
[2022-01-29] MEDS ORDERED: POTASSIUM CHLORIDE 20 MEQ PACKET PO SCH (18:00)
[2022-01-29] MEDS ORDERED: INSULIN REGULAR, HUMAN 100 UNITS/1 ML SUB-Q SCH (18:00)
[2022-01-29] MEDS: INSULIN GLARGINE 100 UNITS/ML SUB-Q SCH ×2 (18:23→19:00)
[2022-01-29] MEDS ORDERED: POTASSIUM PHOSPHATE 30 MMOL in SODIUM CHLORIDE 0.9% 500 ML 500 ML IV ONE (18:43)
[2022-01-29] MEDS ORDERED: MAGNESIUM SULFATE 4 GM/100 ML BAG IV ONE (20:00)
[2022-01-29] MEDS: INSULIN REGULAR, HUMAN 100 UNITS/1 ML SUB-Q SCH ×2 (21:48→22:32)
[2022-01-30] MEDS: INSULIN REGULAR, HUMAN 100 UNITS/1 ML SUB-Q SCH ×2 (02:12→06:10)
[2022-01-30 04:22] LABS: Basophils % (Auto) 0.4 % (0.0-1.8); Eosinophils # (Auto) 0.1 K/mm3 (0.0-0.4); Eosinophils % (Auto) 0.9 % (0.0-4.3); Hematocrit 30.6 % (30.3-42.9); Hemoglobin 10.2 gm/dl (10.1-14.3); Lymphocytes # (Auto) 2.8 K/mm3 (1.2-5.4); Lymphocytes % (Auto) 39.5 % (13.4-35.0); Mean Corpuscular HGB Conc 33 % (30-34); Mean Corpuscular Volume 82 fl (79-97); Monocytes # (Auto) 0.4 K/mm3 (0.0-0.8); Monocytes % (Auto) 5.5 % (0.0-7.3); Platelet Count 254 K/mm3 (140-440); Red Blood Count 3.75 M/mm3 (3.65-5.03); Red Cell Distribution Width 14.8 % (13.2-15.2)
[2022-01-30 04:40] LABS: Alanine Aminotransferase 7 units/L (7-56); Albumin 3.3 g/dL (3.9-5); Blood Urea Nitrogen 6 mg/dL (7-17); Calcium 7.9 mg/dL (8.4-10.2); Hemolysis Index 8
[2022-01-30 04:43] LABS: BUN/Creatinine Ratio 12
[2022-01-30] MEDS ORDERED: POTASSIUM PHOSPHATE 30 MMOL in SODIUM CHLORIDE 0.9% 500 ML 500 ML IV ONE (05:23)
[2022-01-30] MEDS: HEPARIN 5,000 UNIT/1 ML VIAL SUB-Q SCH (05:42)
[2022-01-30] MEDS ORDERED: INSULIN REGULAR, HUMAN 100 UNITS/1 ML SUB-Q SCH (07:30)
[2022-01-30] MEDS ORDERED: POTASSIUM CHLORIDE ER 20 MEQ TAB PO SCH (08:00)
[2022-01-30] MEDS ORDERED: SODIUM BICARB 8.4% 50 MEQ/50 ML SYRINGE IV SCH (08:30)
--- NOTE | 2022-01-30 09:01 | Progress Note ---
Assessment and Plan DKA N&V Medication non compliance Metabolic Acidosis Leucocytosis - continue volume resuscitation for now - bicarbonate supplementation if met acidosis persists - correct electrolytes per protocol - prn supplemental oxygen to keep O2 sats > 90% - prn bronchodilators (ALEYDA) with pulm hygiene per RT - continue to avoid nephrotoxins, renally dose all medications - mobility protocols to prevent pressure ulcers - PT/OT as tolerated - prn analgesia per pain score - Wound care per RN/WCT - continue accuchecks with glycemic control per SSI for target blood glucose < 180 mg/dL - tobacco abstinence strongly counseled at the bedside - home oxygen evaluation at discharge - GI & VTE prophylaxis - Flu & pneumovax per protocol - continue other care per attending / other consultants ... re-evaluate in am & prn Subjective Date of service: 01/30/22 Principal diagnosis: DKA; N&V; Medication non compliance; Metabolic Acidosis; Leucocytosis Interval history: Patient is seen today for: DKA; N&V; Medication non compliance; Metabolic Acidosis; Leucocytosis Seen and examined at bedside; 24hour events reviewed; nursing and respiratory care staff consulted; no adverse overnight events reported to me; resting peacefully in bed; transitioned off IV insulin; remains with milder metabolic acidosis but gap closed; denies N/V/F/C Objective Vital Signs - 12hr 01/29/22 01/29/22 01/29/22 21:00 21:31 22:00 Temperature Pulse Rate 88 86 101 H Pulse Rate [ From Monitor] Respiratory 14 25 H 23 Rate Blood Pressure 101/51 111/80 89/50 O2 Sat by Pulse 99 99 96 Oximetry 01/29/22 01/29/22 01/29/22 22:31 23:00 23:31 Temperature Pulse Rate 89 84 84 Pulse Rate [ From Monitor] Respiratory 26 H 22 20 Rate Blood Pressure 89/50 95/54 95/54 O2 Sat by Pulse 96 95 97 Oximetry 01/30/22 01/30/22 01/30/22 00:00 00:31 01:00 Temperature 98.2 F Pulse Rate 81 82 77 Pulse Rate [ 80 From Monitor] Respiratory 22 20 21 Rate Blood Pressure 105/66 105/66 96/58 O2 Sat by Pulse 100 97 98 Oximetry 01/30/22 01/30/22 01/30/22 01:31 02:00 02:31 Temperature Pulse Rate 86 78 76 Pulse Rate [ From Monitor] Respiratory 22 19 20 Rate Blood Pressure 96/58 98/54 98/54 O2 Sat by Pulse 96 97 97 Oximetry 01/30/22 01/30/22 01/30/22 03:00 03:31 04:00 Temperature 98.8 F Pulse Rate 78 77 65 Pulse Rate [ 80 From Monitor] Respiratory 19 19 13 Rate Blood Pressure 106/65 98/54 O2 Sat by Pulse 97 97 98 Oximetry 01/30/22 01/30/22 01/30/22 04:05 04:31 05:00 Temperature Pulse Rate 78 Pulse Rate [ From Monitor] Respiratory 18 Rate Blood Pressure 98/54 98/54 103/63 O2 Sat by Pulse 100 98 97 Oximetry 01/30/22 01/30/22 01/30/22 05:30 06:00 06:31 Temperature Pulse Rate 67 69 66 Pulse Rate [ From Monitor] Respiratory 20 18 20 Rate Blood Pressure 103/63 107/67 107/67 O2 Sat by Pulse 98 97 98 Oximetry 01/30/22 01/30/22 07:00 07:01 Temperature 99.1 F Pulse Rate 84 Pulse Rate [ From Monitor] Respiratory 13 Rate Blood Pressure 88/39 O2 Sat by Pulse 98 Oximetry Constitutional: no acute distress Eyes: non-icteric ENT: oropharynx moist Neck: supple, no lymphadenopathy, no JVD Effort: normal Ascultation: Bilateral: clear Percussion: Bilateral: not dull Cardiovascular: regular rate and rhythm Gastrointestinal: normoactive bowel sounds, soft, non-tender, non-distended Integumentary: normal Extremities: no cyanosis, no edema, pink and warm, pulses normal Neurologic: normal mental status, non-focal exam, pupils equal and round, motor strength normal and Psychiatric: mood appropriate, affect normal CBC and BMP: 01/30/22 03:40 01/30/22 03:40 Abnormal lab findings: Abnormal Labs 01/28/22 01/28/22 01/29/22 23:38 23:38 01:28 WBC 13.1 H RBC 5.22 H Hct 44.7 H MCH 26 L Plt Count 538 H Lymph % (Auto) Seg Neutrophils % 74.6 H Seg Neutrophils # 9.8 H VBG pH Sodium 133 L Potassium 5.7 H Chloride 97.5 L Carbon Dioxide 6 L* BUN Creatinine Glucose 451 H POC Glucose Calcium Phosphorus 5.20 H Magnesium Alkaline Phosphatase 175 H Total Protein 8.4 H Albumin 5.2 H Lipase 01/29/22 01/29/22 01/29/22 01:28 01:28 01:28 WBC RBC Hct MCH Plt Count Lymph % (Auto) Seg Neutrophils % Seg Neutrophils # VBG pH 7.059 L* Sodium 131 L Potassium 6.1 H* Chloride 95.9 L Carbon Dioxide 7 L* BUN Creatinine Glucose 567 H* POC Glucose Calcium Phosphorus Magnesium Alkaline Phosphatase 181 H Total Protein Albumin Lipase 12 L 01/29/22 01/29/22 01/29/22 01:36 02:51 04:02 WBC RBC Hct MCH Plt Count Lymph % (Auto) Seg Neutrophils % Seg Neutrophils # VBG pH Sodium Potassium Chloride 108.3 H Carbon Dioxide 4 L* BUN Creatinine Glucose 198 H POC Glucose 539 H 292 H Calcium Phosphorus Magnesium Alkaline Phosphatase Total Protein Albumin Lipase 01/29/22 01/29/22 01/29/22 04:02 04:59 06:01 WBC RBC Hct MCH Plt Count Lymph % (Auto) Seg Neutrophils % Seg Neutrophils # VBG pH Sodium Potassium Chloride Carbon Dioxide BUN Creatinine Glucose POC Glucose 152 H 123 H 123 H Calcium Phosphorus Magnesium Alkaline Phosphatase Total Protein Albumin Lipase 01/29/22 01/29/22 01/29/22 06:43 07:55 09:00 WBC RBC Hct MCH Plt Count Lymph % (Auto) Seg Neutrophils % Seg Neutrophils # VBG pH Sodium Potassium Chloride Carbon Dioxide 8 L* BUN Creatinine Glucose 138 H POC Glucose 158 H 158 H Calcium Phosphorus Magnesium Alkaline Phosphatase Total Protein Albumin Lipase 01/29/22 01/29/22 01/29/22 10:01 11:10 12:19 WBC RBC Hct MCH Plt Count Lymph % (Auto) Seg Neutrophils % Seg Neutrophils # VBG pH Sodium Potassium 5.2 H Chloride 113.8 H Carbon Dioxide 13 L BUN Creatinine Glucose 121 H POC Glucose 140 H 117 H Calcium 7.3 L D Phosphorus 2.30 L D Magnesium Alkaline Phosphatase Total Protein Albumin Lipase 01/29/22 01/29/22 01/29/22 14:40 16:03 16:25 WBC RBC Hct MCH Plt Count Lymph % (Auto) Seg Neutrophils % Seg Neutrophils # VBG pH Sodium Potassium 3.3 L D Chloride 111.1 H Carbon Dioxide 16 L BUN 6 L Creatinine Glucose 117 H POC Glucose 134 H 137 H Calcium 7.0 L Phosphorus 1.50 L D Magnesium 1.40 L Alkaline Phosphatase Total Protein Albumin Lipase 01/29/22 01/30/22 01/30/22 21:45 03:40 03:40 WBC RBC Hct MCH 27 L Plt Count Lymph % (Auto) 39.5 H Seg Neutrophils % Seg Neutrophils # VBG pH Sodium Potassium 3.4 L Chloride Carbon Dioxide 17 L BUN 6 L Creatinine 0.5 L Glucose 198 H POC Glucose 277 H Calcium 7.9 L Phosphorus 2.40 L D Magnesium Alkaline Phosphatase Total Protein 5.4 L D Albumin 3.3 L Lipase Allied health notes reviewed: nursing
[2022-01-30] MEDS ORDERED: FAMOTIDINE 20 MG TAB PO SCH (10:00)
[2022-01-30 10:35] VITALS: BP 108/67
[2022-01-30 13:25] LABS: Blood Urea Nitrogen 6 mg/dL (7-17); Calcium 8.1 mg/dL (8.4-10.2); Hemolysis Index 4
--- NOTE | 2022-01-30 13:43 | Discharge Summary ---
<DEE STOLL - Last Filed: 01/30/22 14:18> Providers - Providers Date of Admission: 01/29/22 01:56 Date of discharge: 01/30/22 Attending physician: PIO PIZANO MD 01/29/22 01:07 Consult to Dietitian/Nutrition [CONS] Routine Physician Instructions: Reason For Exam: DKA Reason for Consult: Nutrition Recommendations Reason for Consult: Diet education 01/29/22 01:54 Consult to Physician [CONS] Urgent Comment: NOTED/ YARELI Consulting Provider: MADELEINE MATIAS Physician Instructions: Reason For Exam: dka Primary care physician: VIRI IRWIN Hospitalization Reason for admission: DKA Condition: Stable Hospital course: This is a 21-year-old female with known past medical history of type 1 Diabetes Mellitus admitted for DKA Hospital Course to Date: 01/29: Remains in metabolic acidosis this am. Additional IVF boluses ordered. Continue insulin gtt and IVF resuscitation per DKA protocol. Monitor and replace electrolytes as needed. Monitor anion gap, serial Labs ordered. Thorough discussion with patient and patient's mother at the bedside. Patient's diagnosis, current condition, and plan of care were thoroughly discussed. According to patient's mother, patient is down here for labor day from [place]. Patient does have a functioning insulin pump, however, her dexacom ran out of battery and she did not check her BG to manually make adjustment to her pump. 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 Will transition to subQ insulin once anion gap and acidosis resolved. Patient to go back to her home insulin regimen via the pump at discharge. 01/30: Remains stable, BG improved and anion gap closed. Patient transitioned to subQ insulin overnight. CO2 still less than 20 this am, BG less than 200s. Additional IVF bolus administered and 1amp of bcarb. Potassium and phosp repleted. Patient is stable for discharge. Plan of care thoroughly discussed with patient and her mother at the bedside. They verbalized understanding and agreed with current care plan. Patient reported that she has enough insulin and does not need any prescriptions. Follow up with PCP and skid road worker within a week. Assessment and Plan #Diabetic Ketoacidosis(DKA) #Type 1 Diabetes Mellitus #Anion Gap Metabolic Acidosis - Visiting from [place] - Presented withGB 451, CO2 of 6 anion gap of 35, venous pH of 7.059, urinalysis reveals 3+ ketones - S/p DKA protocol - Patient does have a functioning insulin pump, however, her dexacom ran out of battery and she did not check her BG to manually make adjustment to her pump. - remains in metabolic acidosis this am, CO2 is 8, and Anion gap is still in the 30 - Symptoms resolved, tolerating PO intake - Patient is stable for discharge, resume home insulin regimen with insulin pump at discharge. - Follow with PCP and skid road worker in [place] within a week #Nausea and Vomiting-resolved - Secondary to above - s/p DKA protocol - N/V resolved - Continue PRN antiemetic for N/V #Hyperkalemia-resolved #Hyponatremia-resolved #Volume Depletion/Dehydration - most likely due to DKA - s/p DKA protocol - Strict intake and output - Monitor and replace electrolytes as needed - Serial Labs ordered #Leukocytosis-resolved - Most likely reactive to aboved - Patient is Afebrile, VSS - Continue DKA protocol - Trend CBC #GI/DVT Prophylaxis - PPI- Pepcid - Heparin SubQ - SCDs to bilateral lower extremities while in bed #Advance Care Planning - Disease education data, care plan, diagnoses, and prognosis were discussed with the patient and her mother at the bedside. Patient is a FULL code. They acknowledged understanding and agreed with current care plan. Disposition: 01 HOME / SELF CARE / HOMELESS Final Discharge Diagnosis (Prints w/discharge instructions): Type 1 Diabetes Mellitus Time spent for discharge: 35 Core Measure Documentation - Palliative Care Palliative Care/ Comfort Measures: Not Applicable - Core Measures Any of the following diagnoses?: none Exam - Constitutional Vitals: Temp Pulse Resp BP Pulse Ox 99.3 F 78 13 108/67 99 01/30/22 11:45 01/30/22 10:00 01/30/22 10:00 01/30/22 10:00 01/30/22 10:00 General appearance: Present: no acute distress, well-nourished, obese - EENT Eyes: Present: PERRL, EOM intact ENT: hearing intact - Neck Neck: Present: normal ROM - Respiratory Respiratory effort: normal Respiratory: bilateral: CTA - Cardiovascular Rhythm: regular Heart Sounds: Present: S1 & S2 - Extremities Extremities: no ischemia, pulses intact, pulses symmetrical Peripheral Pulses: within normal limits - Abdominal General gastrointestinal: Present: soft, non-distended, normal bowel sounds Female genitourinary: Present: deferred - Rectal Rectal Exam: deferred - Integumentary Integumentary: Present: clear, warm, dry - Musculoskeletal Musculoskeletal: strength equal bilaterally - Psychiatric Psychiatric: appropriate mood/affect, cooperative - Neurologic Neurologic: CNII-XII intact, moves all extremities - Allied Health Allied health notes reviewed: nursing, case management Plan Activity: no restrictions Diet: diabetic, low carbohydrate Wound: open to air Special Instructions: record blood sugar diary Care Plan Goals: Follow up with your PCP and skid road worker within a week If symptoms return, please visit your nearest emergency department for further evaluation and treatment Follow up with: VIRI IRWIN MD [Primary Care Provider] - 7 Days <PIO PIZANO - Last Filed: 02/01/22 07:47> Providers - Providers Date of Admission: 01/29/22 01:56 Attending physician: PIO PIZANO MD 01/29/22 01:07 Consult to Dietitian/Nutrition [CONS] Routine Physician Instructions: Reason For Exam: DKA Reason for Consult: Nutrition Recommendations Reason for Consult: Diet education 01/29/22 01:54 Consult to Physician [CONS] Urgent Comment: NOTED/ YARELI Consulting Provider: MADELEINE MATIAS Physician Instructions: Reason For Exam: dka Primary care physician: VIRI IRWIN Hospitalization Hospital course: I saw and evaluated the patient. I agree with the findings and the plan of care as documented in the Nurse Practitioner's~note, with the following corrections and additions. Exam - Constitutional Vitals: Temp Pulse Resp BP Pulse Ox 99.3 F 87 23 108/67 98 01/30/22 12:00 01/30/22 12:00 01/30/22 12:00 01/30/22 12:30 01/30/22 12:30
[2022-01-30 13:44] LABS: BUN/Creatinine Ratio 10
--- NOTE | 2022-01-30 16:55 | Electrocardiograph Report ---
[facility] Test Date: 2022-01-29 Test Time: 01:21:11 Pat Name: ESTEFANI BLAIR Department: Room: A251 1 Gender: F [employer]: NURSE : 2000 Requested By: PIO PIZANO Order Number: [id number] Reading MD: Sarah Daly Measurements Intervals [place] Rate: 105 P: 74 [place]: 132 QRS: 37 QRSD: 78 T: 55 QT: 348 QTc: 460 Interpretive Statements Sinus tachycardia No previous ECG available for comparison Electronically Signed On 01-30-2022 16:55:26 EDT by Sarah Daly
--- NOTE | 2022-01-30 20:51 | Consultation ---
DATE OF CONSULTATION: 01/29/2022 PULMONARY CRITICAL CARE CONSULTATION CONSULTING PHYSICIAN: Dr. Jerson Subramanian. REASON FOR CONSULTATION: Diabetic ketoacidosis. CHIEF COMPLAINT AND HISTORY OF PRESENT ILLNESS: The patient is a now 21-year-old female with past history significant amongst other things for a diagnosis of type 1 diabetes. She tells me she has been using insulin since she was 3-year-old, brought into the Emergency Room complaining of nausea and vomiting. She is visiting from out of town, I believe, from [place]. She admits to missing some of her medications as she should be taking them. She denied diarrhea. She denied any nausea, vomiting, fevers or chills. She denied any shortness of breath. She denied any new wounds or sores on her body. Denied any dysuria, hematuria. She denied any sick contacts. Had a little bit of abdominal pain. No vomiting. In the Emergency Room, she was evaluated and labs were consistent with diabetic ketoacidosis with a venous pH of 7.06 and a serum bicarbonate of 6.0 with an anion gap of 35. She was started on the DKA protocol with IV insulin and brought into the critical care unit where I stopped by to see her. When I stopped by to see her, she was feeling a little bit better. She remained on IV insulin drip, I believe, was going at 3 units per hour at the time I saw her. Her symptoms were all better. When asked about tobacco use or abuse, she denies. That really is as much of the history of presentation as I have. PAST MEDICAL HISTORY: Diabetes. PAST SURGICAL HISTORY: Denies. MEDICATIONS: She was on at the time I stopped by to see her according to the medication administration record included the following: Tylenol 650 mg p.o. q. 6 hours p.r.n. for mild pain or fevers, Pepcid 20 mg IV daily, insulin drip was going at 3 units per hour, morphine sulfate 2 mg IV q. 4 hours p.r.n. moderate pain and Zofran 4 mg IV q. 8 hours p.r.n. nausea and vomiting. ALLERGIES: AMOXICILLIN. Nature of this allergy is unknown. DIET: Well-built lady. She denies acute weight loss or gain in the preceding few weeks to months. FAMILY AND SOCIAL HISTORY: Lives in the community. Denies alcohol, tobacco or illicit drug use or abuse. FAMILY HISTORY: Otherwise, noncontributory. REVIEW OF SYSTEMS: No loss of consciousness. No new-onset seizures. No new-onset focal weakness. Denies gross hematochezia or melena. Denies gross hematuria or dysuria. No hematemesis, no hemoptysis, no palpitations. She had some polyuria and polydipsia. She denied heat or cold intolerance. Complete 13-system review of system was obtained. Pertinent positives and/or negatives as in body of history above, otherwise noncontributory. PHYSICAL EXAMINATION: VITAL SIGNS: On presentation in the Emergency Room, she was afebrile, temperature 98.3 degrees Fahrenheit, pulse of 121, respiratory rate of 18, blood pressure 124/61, O2 sats were 98% at the time I saw her, that was on room air. GENERAL: She is a young female. Normocephalic, atraumatic. Talking to me with full sentences with normal respiratory effort at rest. HEAD, EYES, EARS, NOSE AND THROAT: Anicteric. No conjunctival erythema. Oropharynx was moist. NECK: No gross jugular venous distention, no thyromegaly. Grossly, there were no palpable lymph nodes in the supraclavicular or submandibular lymph node chains. LUNGS: Auscultation of both lung steel unremarkable. Lungs were clear bilaterally with good bilateral air movement. HEART: Sounds 1 and 2 are heard, regular rate and rhythm at the time of my evaluation without overt rubs or murmurs. ABDOMEN: Soft, full, bowel sounds are positive, nontender, no palpable hepatosplenomegaly. EXTREMITIES: Without overt digital clubbing or cyanosis, no pedal edema. Pedal pulses are 2+ bilaterally. NEUROLOGIC: Pupils are equal, round, about 4 mm, reactive to light. Extraocular muscle movements are intact. She moves all 4 extremities spontaneously. SKIN: Normal turgor in the areas I examined without overt cellulitis or rash. Please see the wound care nurses' notes for full description of her skin. PSYCHIATRIC: Mood was normal. Affect was appropriate. She had intact judgment and insight. LABORATORY DATA: From my review are as follows: Admission white cell count 13,100, hemoglobin 13.8, hematocrit 44.7, platelet count 538. Venous blood gas showed a pH of 7.06. Serum sodium was 137, potassium 5.7, chloride 98, bicarbonate 6, BUN 15, creatinine 1.0, glucose 451. Liver function tests essentially within normal limits. Urine test was negative. Urinalysis was negative for nitrites and leukocyte esterase. No microbiology studies for review. No radiographic studies for review. ASSESSMENT: 1. Diabetic ketoacidosis. 2. Medication noncompliance. 3. Nausea. PLAN: She will continue on the DKA protocol. I have told her she will soon be able to eat once her gap has closed and she was transitioned off IV insulin therapy. In the meantime, symptomatic treatment will be given p.r.n. antiemetics as necessary. Better medication compliance has been counseled. Continued tobacco abstinence has been counseled. She is appropriately on GI and DVT prophylaxis. Flu and pneumonia vaccination will be addressed per protocol. Thank you very much for the consult. We will follow along and make further recommendations as picture progresses/becomes clearer. TID: [id number] RECEIPT: [id number] MACHELLE/SCOT
== END 2022-01-30 15:05 | disposition home or self-care (01) | DRG 638 ==
LOC: ED 22:59 → CC1 01-29 01:56
PROVIDERS: ADMIT Internal Medicine Geriatric Medicine; ATTEND Internal Medicine
DX: E10.10 Type 1 diabetes mellitus with ketoacidosis without coma (principal); E87.1 Hypo-osmolality and hyponatremia; E87.5 Hyperkalemia; D72.829 Elevated white blood cell count, unspecified; E86.9 Volume depletion, unspecified; E86.0 Dehydration; Z91.19 Patient's noncompliance with other medical treatment and regimen; Z88.8 Allergy status to other drugs, medicaments and biological substances; Z96.41 Presence of insulin pump (external) (internal)
CPT/HCPCS: 36415; 80048; 80053; 80076; 81001; 82805; 82962; 83690; 83735; 84100; 84703; 85025; 93005; G0378; J3480; J3490; J7070; J7510; Q9967; J1644; J1815; J2405; J3475; J7030; J7040